=== PATIENT | male | born 1950 | race Caucasian/White ===

== ENCOUNTER 2023-10-22 08:15 | Day surgery (SDC) | payer MEDICARE ==
[~2023-10-22 08:15] MED LIST: LACTATED RINGERS 1,000 ML BAG ONE
[2023-10-22] MEDS ORDERED: PROPOFOL 10 MG/ML 20 ML VIAL IV ONE (08:19)
--- NOTE | 2023-11-01 15:52 | PCN ---
PROCEDURE NOTE REQUESTING PHYSICIAN: Dr. Reece. BRIEF HISTORY: The patient is a 73-year-old pleasant white male scheduled for an elective colonoscopy as a part of screening for colorectal neoplasia. Last colonoscopy was 10 years ago. PROCEDURE PERFORMED: Colonoscopy with snare polypectomy. PREOPERATIVE DIAGNOSIS: Screening for colon cancer. ANESTHESIA: IV sedation per Anesthesia. DESCRIPTION OF PROCEDURE: After informed consent was obtained from the patient, he was brought in to the endoscopy unit. IV conscious sedation was administered by Anesthesia under continuous monitoring. Initial digital rectal examination was normal. The Olympus CF-190 video colonoscope was entered in the rectum, gradually advanced into the cecum. Careful examination was performed as the scope was gradually being withdrawn. Ileocecal valve and appendiceal orifice were visualized and appeared normal. The prep was excellent. In the base of the cecum, there was a 5-mm sessile polyp removed by cold snare polypectomy. The ascending colon appeared normal. In the transverse colon, there was a 7-mm polyp that was removed by cold snare polypectomy. Transverse colon, descending colon, sigmoid colon, and rectum appeared normal. In the rectum, retroflexion was performed, no lesions were noted and the patient tolerated the procedure well. IMPRESSION: 1. A 5-mm cecal polyp, status post cold snare polypectomy. 2. A 7-mm transverse colon polyp, status post cold snare polypectomy. 3. Rest of the colon appeared normal. RECOMMENDATIONS: Findings of this examination were discussed with the patient as well as his family. He was advised to follow up with the biopsy results. If the biopsy reveals carcinoma, he can have a repeat colonoscopy in 5 years. MMODL / IJN: [id number] /
== END 2023-10-22 09:05 ==
LOC: ORWHC2ENDO 08:15
PROVIDERS: ATTEND Internal Medicine Gastroenterology
DX: Z12.11 Encounter for screening for malignant neoplasm of colon (principal); D12.0 Benign neoplasm of cecum; E78.5 Hyperlipidemia, unspecified; Z85.3 Personal history of malignant neoplasm of breast; Z85.46 Personal history of malignant neoplasm of prostate; Z79.899 Other long term (current) drug therapy
CPT/HCPCS: 45385; 88305